=== PATIENT | male | born 1965 | race Caucasian/White ===

== ENCOUNTER 2020-08-08 06:43 | Outpatient (REF) | payer OTHER, SELFPAY | END 2020-08-08 06:44 | disposition home or self-care (01) | LOC: HO.LAB 06:43 | PROVIDERS: Visit Provider Internal Medicine | DX: Z20.828 Contact with and (suspected) exposure to other viral communicable diseases (principal) | CPT/HCPCS: C9803; U0003 ==

== ENCOUNTER 2020-12-31 11:28 | Outpatient (REF) | payer OTHER, SELFPAY ==
[2020-12-31 14:20] LABS: SARS COV2 PCR INHOUSE NEGATIVE (Negative)
== END 2020-12-31 11:29 | disposition home or self-care (01) ==
LOC: HO.LAB 11:28
PROVIDERS: Visit Provider Internal Medicine
DX: Z20.822 Contact with and (suspected) exposure to COVID-19 (principal)
CPT/HCPCS: C9803; U0003

== ENCOUNTER 2025-07-25 04:45 | Observation (INO) | payer OTHER, SELFPAY ==
[2025-07-25] VITALS (11 sets, daily range): BP systolic 113–160; BP diastolic 58–95; PULSE 74–106; RESP 14–18; TEMP 36.7–37; O2SAT 91–99; BMI 29.8
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
[2025-07-25 04:55] LABS: Glucose, Whole Blood 53 mg/dL (60-115)
[2025-07-25 05:22] LABS: MANUAL DIFF FLAG NO
[2025-07-25 05:24] LABS: Hematocrit 54.8 % (42.0-52.0); Hemoglobin 18.3 g/dl (14.0-18.0); Imm Gran Abs Auto 0.14 X10*3/uL (0.00-0.03); Imm Gran Pct Auto 1.2 % (0.0-0.4); Lymphocytes Absolute Auto 3.1 X10*3/uL (1.2-4.9); Mean Corpuscular HGB Conc 33.4 g/dl (31.0-36.0); Mean Corpuscular Hemoglobin 29.3 pg (27.0-33.0); Mean Corpuscular Volume 87.8 fL (80.0-98.0); NRBC Abs Auto 0.000 X10*3/uL (0.0-0.012); NRBC Pct Auto 0.0 /100WBC (0.0-0.2); Platelet Count 270 X10*3/uL (160-400); Red Blood Count 6.24 X10*6/uL (4.60-5.80); White Blood Count 12.0 X10*3/uL (4.8-10.8)
--- OUTSIDE RECORDS SUMMARY | 2025-07-25 05:28 | XMS_ITS | Clinical Summary ---
Author Organization [facility] [address] [place] [address] [place] [phone] Phone Care Team Providers Care Kick Plate Installer Name Role Phone Leland Vásquez MD Primary Care Provider [phone] Allergies No known active allergies Medications blood sugar diagnostic (FreeStyle Lite Strips) test strip Use to check blood sugar 3 times a day 05/05/20 23 Active blood-glucose sensor (FREESTYLE JOJO 3 SENSOR MISC) 1 Device by Does not apply route every 14 days. 04/24/20 24 Active omeprazole (PriLOSEC) [address] capsule Take 1 Capsule by mouth daily. 09/28/20 23 Active insulin lispro (HumaLOG KwikPen Insulin) 100 unit/mL injection pen Inject three times a day with meals per sliding scale: 100-150: 6 units; 150-200: 7 units; 201-250: 8 units; 251-300: 9 units; 301-350: 10 units; 351-400: 11 units 08/11/20 22 Active FREESTYLE LANCETS MISC Use to check blood sugar 3 times a day 06/05/20 22 Active albuterol HFA (PROAIR HFA ; PROVENTIL HFA ; VENTOLIN HFA) 90 mcg/actuation inhaler Inhale 2 puffs by mouth every 6 (six) hours if needed for wheezing or shortness of breath. 6.7 g 09/08/20 24 Active metFORMIN (GLUCOPHAGE) 1,000 mg tablet TAKE 1 TABLET BY MOUTH TWICE DAILY WITH MEALS 180 tablet 1 11/13/19 25 Active Lantus Solostar U-100 Insulin 100 unit/mL (3 mL) injection pen INJECT 44 UNITS SUBCUTANEOUSLY ONCE DAILY 30 mL 2 01/31/20 25 Active predniSONE (DELTASONE) 20 mg tablet 1 tablet po tid x 3 days,then 1 tablet po bid x 3days,then 1 tablet po qd x 3days 18 tablet 02/28/20 25 Active pravastatin (PRAVACHOL) 80 mg tablet Take 1 tablet (80 mg total) by mouth 1 (one) time each day. 30 tablet 07/19/20 25 Active sildenafiL (VIAGRA) 100 mg tablet TAKE 1 TABLET BY MOUTH ONCE 30-45 MINUTES PRIOR TO SEXUAL ACTIVITY 30 tablet 07/19/20 25 Active lisinopriL (PRINIVIL,ZEST RIL) 2.5 mg tablet Take 1 tablet (2.5 mg total) by mouth 1 (one) time each day. 90 tablet 07/20/20 25 Active lisinopriL (PRINIVIL,ZEST RIL) 2.5 mg tablet Take 1 Tablet by mouth daily. 09/24/20 23 025 Discontin ued(Reord er) pravastatin (PRAVACHOL) 80 mg tablet Take 1 tablet (80 mg total) by mouth 1 (one) time each day. 90 tablet 09/19/20 24 025 Discontin ued(Reord er) sildenafiL (VIAGRA) 100 mg tablet TAKE 1 TABLET BY MOUTH ONCE 30-45 MINUTES PRIOR TO SEXUAL ACTIVITY 4 tablet 03/20/20 25 025 Discontin ued(Reord er) sildenafiL (VIAGRA) 100 mg tablet TAKE 1 TABLET BY MOUTH ONCE 30-45 MINUTES PRIOR TO SEXUAL ACTIVITY 4 tablet 07/16/20 25 025 Discontin ued(Reord er) Active Problems Problem Noted Date Diagnosed Date Medically noncompliant 06/23/2019 Chronic vertigo 05/03/2018 Hyperlipidemia 11/12/2017 Lumbar radiculitis 02/05/2017 Gastroesophageal reflux disease without esophagi tis 10/16/2016 Microalbuminuria 07/02/2015 Encounters Date Type Department Care Team Description 05/25/2025 [facility] [address] [place] [address] Leland Vásquez MD from Last 3 Months Immunizations Immunization Administration Dates Next Due Influenza Quadravalent, MDCK , 0.5ml, preservative free (Flucelvax) 6mo and older 09/24/2023,06/10/2022,08/02/2020,11/10 Influenza trivalent, with pr eservative (Fluzone; Afluria) 6mo and older 07/07/2018,10/08/2016,07/16/2014 Pfizer SARS-CoV-2 COVID-19, mRNA, LNP-S, preservative free 01/14/2022,03/31/2021,03/05/2021 Pneumococcal polysaccharide 23 valent (Pneumovax 23) 2yo and older 09/19/2018 Tdap Tetanus diptheria acell ular pertussis (Boostrix; Adacel) 7yo and older 10/08/2016 Surgical History Surgery Date Site/Laterality Comments OTHER SURGICAL HISTORY PROCEDURE: DENIES PREVIOUS SURGERY Medical History Medical History Date Comments Chronic ankle pain DX:Chronic an kle pain; COMMENT: bilateral Chronic knee pain DX:Chronic kne e pain; COMMENT: bilateral Diabetes mellitus type 2, co ntrolled, with complications ([facility] V24, [facility] V28) DX:Diabetes mellitus type 2, controlled, with complications ([facility]) Family History Medical History Relation Name Comments Diabetes Mother Blindness Neg Hx Cataracts Neg Hx Glaucoma Neg Hx Heart attack Neg Hx Macular degeneration Neg Hx Strabismus Neg Hx Relation Name Status Comments Mother Social History Tobacco Use Types Packs/Day Years Used Date Smoking Tobacco: Never Smokeless Tobacco: Never Tobacco Cessation:Counseling Given: Not Answered Alcohol Use Standard Drinks/Week Comments No 0 (1 standard drink = 0.6 oz pur e alcohol) Housing Instability Answer Date Recorde d Are you worried that in the next 2 months you may not have stable housing? No 07/20/2025 Food Access & Nutrition Answer Date Rec orded Do you have access to a vari ety of food including fruits and vegetables? Yes 07/20/2025 Access to Healthcare Answer Date Record ed Within the last 3 months, ho w many times did you visit the emergency department for your medical care? 0 07/20/2025 Health Literacy Answer Date Recorded How often do you need to hav e someone help you when you read instructions, pamphlets, or other written material from your doctor or pharmacy? Never 07/20/2025 Caregiver: How often do you need to have someone help you when you read instructions, pamphlets, or other written material from your doctor or pharmacy? Not on file 07/20/2025 Financial Risk Answer Date Recorded How hard is it for you to pa y for the very basics like food, housing, medical care, and air conditioning / heating? Somewhat hard 07/20/2025 Transportation Answer Date Recorded Has the lack of transportati on kept you from meetings, work, or from getting things needed for daily living? No Has the lack of transportati on kept you from medical appointments or from getting medications? No 07/20/2025 Social Isolation Answer Date Recorded How often do you feel lonely or isolated from ose around you? Rarely 07/20/2025 Food Risk Answer Date Recorded Within the past 12 months we worried whether our food would run out before we got money to buy more. Sometimes true 025 Within the past 12 months th e food we bought just didn't last and we didn't have money to get more. Never true 07/20/2025 Dependent Care Answer Date Recorded Do you need help finding or paying for care for your loved ones. For example, child care attendant or elderly care for an older adult? Patient declined 07/20/2025 Education Answer Date Recorded Do you think completing more education or training, like finishing a GED, going to college, or learning a trade, would be helpful for you? Patient declined 07/20/2025 Employment and Income Answer Date Recor ded During the last four weeks, have you been actively looking for work? Patient declined 07/20/2025 Living Situation Answer Date Recorded What is your living situation? Unrecognized valu e 07/20/2025 Sex and Gender Information Value Date Recorded Sex Assigned at Male 07/19/2025 10:47 AM EDT Legal Sex Male 12:25 PM EST Gender Identity Male 07/19/2025 10:47 AM EDT Sexual Orientation Not on file Obstetrics History Last Filed Vital Signs Vital Sign Reading Time Taken Comments Blood Pressure 129/89 02/27/2025 2:43 PM EDT Pulse 98 02/27/2025 2:43 PM EDT Temperature 36.6 C (97.9 F) 02/27/2025 2:43 PM EDT Respiratory Rate - - Oxygen Saturation 98% 02/27/2025 2:43 PM EDT Inhaled Oxygen Concentration - - Weight 87.7 kg (193 lb 6.4 oz) 10/10/2024 2:48 P M EST Height 170.2 cm (5' 7 ) 10/10/2024 2:48 PM EST Body Mass Index 30.29 10/10/2024 2:48 PM EST Plan of Treatment Upcoming Encounters Date Type Department Care Team (Late st Contact Info) Description 08/24/2025 9:00 AM EST Office Visit Internal Medicine - [address] [phone] Elizabeth To, NANCIE [address] [place] [address] Health Maintenance Due Date Last Done Comments Colorectal Cancer Screening: Colonoscopy 1967 Diabetes: Annual Retina Eye Exam 1977 Hepatitis B Vaccines (1 of 3 - 19+ 3-dose series) 1986 RSV Immunization Adult Patients (1 - Risk 50-74 years 1-dose series) 2017 Zoster Vaccines (1 of 2) 2017 Pneumococcal Vaccine: 50+ Years (2 of 2 - PCV) 09/19/2019 09/19/2018 HIV Screening 09/12/2022 Diabetes: Annual Urine Albumin-Creatinine Ratio (uACR) 02/24/2025 02/25/2024 Diabetes: Annual Foot Exam 02/24/2025 02/25/2024 Diabetes: Blood Sugar Control Test (HGBA1C) 04/09/2025 10/10/2024, 02/25/2024, 02/25/2024 COVID-19 Vaccine ( season) 2025 01/14/2022, 03/31/2021, 03/05/2021 Influenza Vaccine (#1) 2025 3, 06/10/2022, 08/02/2020, Additional history exists Diabetes: Annual GFR (Glomerular Filtration Rate) 10/10/2025 10/10/2024, 02/25/2024, 02/25/2024 Social Influencers of Health Screening 07/20/2026 07/20/2025 DTaP,Tdap,and Td Vaccines (2 - Td or Tdap) 10/08/2026 10/08/2016 Cholesterol Screening (Lipid Panel) 02/24/2029 02/25/2024, 02/25/2024 Hepatitis C Screening Completed 06/10/2022 Depression Screening Completed 07/20/2025 HIB Vaccines Aged Out No longer eligi ble based on patient's age to complete this topic HPV Vaccines Aged Out No longer eligi ble based on patient's age to complete this topic Hepatitis A Vaccines Aged Out No long er eligible based on patient's age to complete this topic IPV Vaccines Aged Out No longer eligi ble based on patient's age to complete this topic MMR Vaccines Aged Out No longer eligi ble based on patient's age to complete this topic Meningococcal ACWY Vaccine Aged Out N o longer eligible based on patient's age to complete this topic Meningococcal B Vaccine Aged Out No l onger eligible based on patient's age to complete this topic RSV Immunization Patients Under 20 months Aged Out No longer eligible based on patient's age to complete this topic Varicella Vaccines Aged Out No longer eligible based on patient's age to complete this topic Procedures Procedure Name Priority Date/Time Associated Diagnosis Comments BASIC METABOLIC PANEL Routine 10/10/2024 3:40 PM EST Diabetes mellitus due to underlying condition with hyperglycemia, with long-term current use of insulin ([facility] V24, [facility] V28) HEMOGLOBIN A1C Routine 10/10/2024 3:40 PM EST Diabetes mellitus due to underlying condition with hyperglycemia, with long-term current use of insulin ([facility] V24, [facility] V28) URINE ALBUMIN CREATININE RATIO Routine 02/25/2024 LIPID PANEL Routine 02/25/2024 DIABETES FOOT EXAM Routine 02/25/2024 HEPATITIS C SCREENING Routine 06/10/2022 from Last 3 Months or Most Recently Relevant to Health Maintenance Results * (ABNORMAL) Hemoglobin A1c (10/10/2024 3:40 PM EST) Hemoglobin A1C 11.3(H) <6.5 % LAB CHEMISTRY METHOD 10/10/2024 9:55 PM [facility] Mean Bld Glu Estim. 278 mg/dL LAB CHEMISTRY METHOD 10/10/2024 9:55 PM [facility] Blood Venous blood specimen / Unknown Venipuncture / Unknown 10/10/2024 3:40 PM EST 10/10/2024 3:40 PM EST us Jessica Cardoza NP LAB BLOOD ORDERABLES Final Resul t [facility] [address] [place] [address], * (ABNORMAL) Basic metabolic panel (10/10/2024 3:40 PM EST) Pathologist [facility] Sodium 134 133 - 145 mmol/L LAB CHEMISTRY METHOD 10/10/2024 6:27 PM [facility] Potassium 4.2 3.5 - 5.5 mmol/L LAB CHEMISTRY METHOD 10/10/2024 6:27 PM [facility] Chloride 103 96 - 110 mmol/L LAB CHEMISTRY METHOD 10/10/2024 6:27 PM [facility] CO2 26 21 - 32 mmol/L LAB CHEMISTRY METHOD 10/10/2024 6:27 PM [facility] Anion Gap 5 3 - 11 LAB CHEMISTRY METHOD 10/10/2024 6:27 PM [facility] Glucose 384(H) 70 - 100 mg/dL LAB CHEMISTRY METHOD 10/10/2024 6:27 PM [facility] BUN 13 5 - 25 mg/dL LAB CHEMISTRY METHOD 10/10/2024 6:27 PM [facility] Creatinine 1.06 0.70 - 1.30 mg/dL LAB CHEMISTRY METHOD 10/10/2024 6:27 PM [facility] eGFR 82 >=60 mL/min/1. 73m2 LAB CHEMISTRY METHOD 10/10/2024 6:27 PM EST [facility] Comment:Calculation based on the Chronic Kidney Disease Epidemiology Collaboration (CKD-EPI) equation refit without adjustment for race. BUN/Creatinine Ratio 12.3 LAB CHEMISTRY METHOD 10/10/2024 6:27 PM EST [facility] Calcium 9.4 8.5 - 10.5 mg/dL LAB CHEMISTRY METHOD 10/10/2024 6:27 PM EST [facility] Blood Venous blood specimen / Unknown Venipuncture / Unknown 10/10/2024 3:40 PM EST 10/10/2024 3:40 PM EST Result [facility] Jessica Cardoza NP LAB BLOOD ORDERABLES Final Resul t [facility] [address] [place] [address], * Urine Albumin Creatinine Ratio (02/25/2024) [facility] Urine Albumin Creatinine Ratio Abstracted Result [facility] Provider HEALTH MAINTENANCE Final Result * Diabetes Foot Exam (02/25/2024) [facility] Diabetes: Annual Foot Exam Abstracted Result [facility] Provider HEALTH MAINTENANCE Final Result * Lipid panel (02/25/2024) [facility] LDL/HDL Ratio 3 0 - 4 Triglycerides 148 0 - 150 mg/dL Cholesterol 153 0 - 200 mg/dL HDL 46 >=40 mg/dL LDL Cholesterol 78 0 - 100 mg/dL Blood Venous blood specimen / Unknown Result [facility] Provider LAB BLOOD ORDERABLES Sammi l Result * Hepatitis C Screening (06/10/2022) [facility] Hepatitis C Screening Abstracted Result [facility] Provider HEALTH MAINTENANCE Final Result from Last 3 Months or Most Recently Relevant to Health Maintenance Insurance [facility] [employer] Care Teams Kick Plate Installer Relationship Specialty Start Date End Date Leland Vásquez MD [address] [place] [phone] PCP - General Internal Medicine 06/05/25
--- OUTSIDE RECORDS SUMMARY | 2025-07-25 05:28 | XMS_ITS ---
Author Name [facility] Organization Unknown Care Team Organization Name Specialty Phone Email Start Date End Da te [facility] Leland Vásquez Primary Care 12/09/2022 05/22/20 [facility] Jeni Flanagan Primary Care 08/11/20222023
[2025-07-25 05:38] LABS: Glucose, Whole Blood 120 mg/dL (60-115)
[2025-07-25 05:47] LABS: Alanine Aminotransferase 28 U/L (0-40); Albumin Level 4.0 g/dL (3.5-5.0); Alkaline Phosphatase 92 U/L (39-117); Anion Gap 14 (12-20); Aspartate Amino Transferase 34 U/L (5-37); Blood Urea Nitrogen 14 mg/dL (9-16); Calcium 9.2 mg/dL (8.4-10.2); Carbon Dioxide 25 mmol/L (22-29); Chloride 108 mmol/L (96-108); Creatinine Clr Calc Pharmacy 78.9; Estimated Glomerular Filt Rate > 60; Magnesium 2.0 mg/dL (1.6-2.6); Potassium 2.7 mmol/L (3.3-5.1); Sodium 144 mmol/L (135-145); Total Protein 7.8 g/dL (6.5-8.0)
[2025-07-25] MEDS: Potassium Chloride ER 20 MEQ TAB.ER.PRT 40 MEQ PO (06:02)
[2025-07-25] MEDS: Potassium Chloride/H20 10 MEQ/100 ML PIGGYBACK 100 MEQ IV (06:10)
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
--- NOTE | 2025-07-25 06:27 | ECG_ITS ---
Test Reason : HYOIKALEMIA Blood Pressure : */* mmHG Vent. Rate : 96 BPM Atrial Rate : 96 BPM P-R Int : 178 ms QRS Dur : 102 ms QT Int : 368 ms P-R-T Axes : 40 -30 35 degrees QTcB Int : 464 ms Normal sinus rhythm Left axis deviation Abnormal ECG No previous ECGs available Referred By: Ivett Fenton Electronically Signed By: LALISON RAJPUT MD
[2025-07-25 07:10] LABS: Glucose, Whole Blood 267 mg/dL (60-115)
[2025-07-25 07:26] LABS: Lipase 35 U/L (8-78)
[2025-07-25] MEDS: iohexoL 350 MG/ML 100 ML INFUS..BTL 85 ML IV (07:46)
[2025-07-25 07:52] LABS: Potassium 3.8 mmol/L (3.3-5.1)
[2025-07-25] MEDS: oxyCODONE HCl Immed Release 5 MG TABLET 10 MG PO (09:07)
[2025-07-25 09:31] LABS: Glucose, Whole Blood 216 mg/dL (60-115)
[2025-07-25] MEDS: Lidocaine 4 % Patch ADH..PATCH 2 PATCH TRANSDERMA (11:10)
--- NOTE | 2025-07-25 11:15 | PC.NURSE ---
Patient medicated per dec, reports some pain relief however still rating pain at 7/10. Upon arrival sat on edge of bed and was able to stand. Now stating because of pain he is unable to sit or stand
--- NOTE | 2025-07-25 11:28 | MHC.EDTECH ---
Patient settings for POC was change to QIDACHS from PER 1 hrs, JR Guillen aware
[2025-07-25 11:29] LABS: Glucose, Whole Blood 213 mg/dL (60-115)
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
--- NOTE | 2025-07-25 12:06 | PHA.MEDREC ---
Addendum entered by Ines Banks RPh 07/25/25 12:59: MED REC REVIEWED BY [facility] Original Note: Pharmacy Consult ? Medication Reconciliation Pharmacy has completed the medication reconciliation. Spoke to patient to confirm med list. Patient was able to name all of his medications. Patient confirmed Lantus SoloStar 44 units daily, Metformin 1,000 mg daily NOT BID as claims states. Patient only had lantus today with no food. Patient last had all his other medications yesterday.
--- NOTE | 2025-07-25 13:05 | PC.NURSE ---
Dr. Hendrickson notified of glucose of 213, order for insulin not scheduled to start until 1630. Awaiting response.
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
[2025-07-25 17:04] LABS: Glucose, Whole Blood 197 mg/dL (60-115)
[2025-07-25 20:31] LABS: Glucose, Whole Blood 197 mg/dL (60-115)
[2025-07-25] MEDS: 0.9 % Sodium Chloride Flush 3 ML SYRINGE IVFLUSH (21:30)
[2025-07-25] MEDS: oxyCODONE HCl Immed Release 5 MG TABLET PO (21:31)
[2025-07-26 03:15] VITALS: BP 124/64; PULSE 68; RESP 14; TEMP 36.5; O2SAT 90
[2025-07-26 07:22] LABS: Glucose, Whole Blood 211 mg/dL (60-115)
[2025-07-26 08:17] VITALS: BP 108/64; PULSE 84; RESP 20; TEMP 36.4; O2SAT 96
[2025-07-26] MEDS: 0.9 % Sodium Chloride Flush 3 ML SYRINGE IVFLUSH (08:42)
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
[2025-07-26 11:43] LABS: Glucose, Whole Blood 239 mg/dL (60-115)
[2025-07-26 12:35] VITALS: BP 133/77; PULSE 66; RESP 18; TEMP 36.4; O2SAT 97
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
== END 2025-07-26 13:28 | disposition other institution (70) ==
LOC: HO.ED 10:48 → HO.EDOVER 12:01 → HO.S3 16:46
PROVIDERS: Emergency Medicine; Physician Assistant Medical; Admitting Provider Internal Medicine; Emergency Provider Emergency Medicine; PCP Internal Medicine; Visit Provider Internal Medicine
DX: E16.0 Drug-induced hypoglycemia without coma (principal); T38.3X5A Adverse effect of insulin and oral hypoglycemic [antidiabetic] drugs, initial encounter; S32.010A Wedge compression fracture of first lumbar vertebra, initial encounter for closed fracture; S22.080A Wedge compression fracture of T11-T12 vertebra, initial encounter for closed fracture; E11.649 Type 2 diabetes mellitus with hypoglycemia without coma; R10.13 Epigastric pain; E87.6 Hypokalemia; R07.89 Other chest pain; M54.50 Low back pain, unspecified; I10 Essential (primary) hypertension; E78.5 Hyperlipidemia, unspecified; R94.31 Abnormal electrocardiogram [ECG] [EKG]; Z79.84 Long term (current) use of oral hypoglycemic drugs; Z79.4 Long term (current) use of insulin; Z79.85 Long-term (current) use of injectable non-insulin antidiabetic drugs; Z79.899 Other long term (current) drug therapy
CPT/HCPCS: 36415; 70450; 71260; 72125; 74177; 80053; 80307; 82947; 83690; 83735; 84132; 85025; 93005; 96365; 96372; 96375; 96376; 97161; 99221; 99285; J0131; J1650; J2270; J2405; J3480; Q9967

== ENCOUNTER → 2025-07-25 05:01 | Outpatient (BNV) | payer OTHER, SELFPAY | PROVIDERS: Emergency Provider Emergency Medicine; PCP Internal Medicine; Visit Provider Radiology Vascular & Interventional Radiology | DX: R10.13 Epigastric pain (principal); S32.010A Wedge compression fracture of first lumbar vertebra, initial encounter for closed fracture; S22.080A Wedge compression fracture of T11-T12 vertebra, initial encounter for closed fracture; R07.9 Chest pain, unspecified; M50.30 Other cervical disc degeneration, unspecified cervical region; V89.2XXA Person injured in unspecified motor-vehicle accident, traffic, initial encounter; Z04.3 Encounter for examination and observation following other accident | CPT/HCPCS: 70450; 71260; 72125; 74177 ==

== ENCOUNTER → 2025-07-25 06:27 | Outpatient (BNV) | payer OTHER, SELFPAY | PROVIDERS: Admitting Provider Internal Medicine; Emergency Provider Emergency Medicine; PCP Internal Medicine; Visit Provider Internal Medicine Cardiovascular Disease | DX: R94.31 Abnormal electrocardiogram [ECG] [EKG] (principal); E87.6 Hypokalemia | CPT/HCPCS: 93010 ==

== ENCOUNTER → 2025-07-25 11:58 | Outpatient (BNV) | payer OTHER, SELFPAY | PROVIDERS: Admitting Provider Internal Medicine; Emergency Provider Emergency Medicine; PCP Internal Medicine; Visit Provider Internal Medicine | DX: E16.0 Drug-induced hypoglycemia without coma (principal); T38.3X5A Adverse effect of insulin and oral hypoglycemic [antidiabetic] drugs, initial encounter; E78.5 Hyperlipidemia, unspecified; I10 Essential (primary) hypertension | CPT/HCPCS: 99222 ==

== ENCOUNTER 2025-08-16 10:35 | Outpatient (AMB) | payer OTHER, SELFPAY ==
[2025-08-16 10:59] VITALS: BMI 29.8
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
--- OUTSIDE RECORDS SUMMARY | 2025-08-16 12:57 | XMS_ITS | Encounter Summary ---
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 Rarely 07/20/2025 Food Risk [...] care for your loved ones. For example, early childhood associate teacher or elderly care for an older adult? [...] AM EDT Sexual Orientation Not on file documented as of this encounter Plan of Treatment Upcoming Encounters Date Type Department Care Team (Late st Contact Info) Description 08/24/2025 9:00 AM EST Office Visit Internal Medicine - [address] [id number] Elizabeth To, NANCIE [address] [place] [address] documented as of this encounter Visit Diagnoses Not on filedocumented in this encounter Additional Health Concerns Assessment Noted Time PHQ-9 Depression Total Score: 12 025 8:46 AM EDT documented as of this encounter Care Teams Rocket [employer] Component Mechanic Relationship Specialty Start Date End Date Leland Vásquez MD [address] [place] [id number] PCP - General Internal Medicine 06/05/25 documented as of this encounter
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
== END 2025-08-16 11:30 | disposition home or self-care (01) ==
LOC: HO.HPHYS 10:35
PROVIDERS: PCP Internal Medicine; Visit Provider Physician Assistant
DX: S22.080A Wedge compression fracture of T11-T12 vertebra, initial encounter for closed fracture (principal); S32.010A Wedge compression fracture of first lumbar vertebra, initial encounter for closed fracture
CPT/HCPCS: 99204